=== PATIENT | female | born 1950 | race Caucasian/White ===

== ENCOUNTER 2020-07-31 15:39 | Inpatient (IN) | payer OTHER ==
[~2020-07-31] VITALS: Ht 172.7 cm; Wt 86.1 kg
[~2020-07-31 15:39] MED LIST: HYDACE5 PO; NAPR500 PO; VENL75
[2020-07-31 16:58] LABS: BASOPHILS ABSOLUTE AUTO 0.05 K/mm3 (0.00-0.23); BASOPHILS PERCENT AUTO 1 % (0-2); EOSINOPHILS ABSOLUTE AUTO 0.01 K/mm3 (0.00-0.68); EOSINOPHILS PERCENT AUTO 0 % (0-6); Hematocrit 29.4 % (33.0-51.0); Hemoglobin 8.7 g/dL (11.5-16.0); IMMATURE GRAN ABSOLUTE AUTO 0.03 K/mm3 (0.00-0.10); IMMATURE GRAN PERCENT AUTO 0 % (0-1); LYMPHOCYTES ABSOLUTE AUTO 0.96 K/mm3 (0.84-5.20); LYMPHOCYTES PERCENT AUTO 13 % (21-46); MONOCYTES ABSOLUTE AUTO 0.63 K/mm3 (0.16-1.47); MONOCYTES PERCENT AUTO 9 % (4-13); Mean Corpuscular HGB 24.6 pg (26.0-34.0); Mean Corpuscular HGB Conc 29.6 g/dL (31.5-36.5); Mean Corpuscular Volume 83 fL (80-100); Mean Platelet Volume 10.1 fL (9.1-12.4); NEUTROPHILS ABSOLUTE AUTO 5.74 K/mm3 (1.96-9.15); NEUTROPHILS PERCENT AUTO 77 % (41-73); Platelet Count 142 K/mm3 (150-400); RDW Coefficient Variation 16.5 % (11.7-14.2); RDW Standard Deviation 50.4 fL (35.1-46.3); Red Blood Cell Count 3.53 M/mm3 (3.80-5.20); White Blood Cell Count 7.42 K/mm3 (4.00-11.30)
[2020-07-31 17:17] LABS: Alanine Aminotransfer (ALT/SGP 42 U/L (12-78); Albumin, Blood 1.9 g/dL (3.4-5.0); Albumin/Globulin Ratio 0.4 (0.8-1.8); Alk Phos 139 U/L (50-136); Anion Gap 6 mmol/L (6-16); Aspartate Aminotrans (AST/SGOT 69 U/L (12-37); Bilirubin, Total 2.4 mg/dL (0.1-1.0); Blood Urea Nitrogen 16 mg/dL (8-24); Bun/Creatinine Ratio 24.3 (12.0-20.0); CO2, Blood 23 mmol/L (21-32); Calcium, Blood 7.8 mg/dL (8.5-10.1); Chloride, Blood 111 mmol/L (98-108); Creatinine, Blood 0.66 mg/dL (0.40-1.00); Globulin, Blood 5.4 g/dL (2.2-4.0); Glomerular Filtration Rate >60 (60-); Glucose, Blood 111 mg/dL (70-99); Potassium, Blood 4.4 mmol/L (3.5-5.5); Sodium, Blood 140 mmol/L (136-145); Total Protein, Blood 7.3 g/dL (6.4-8.2)
[2020-07-31] MEDS ORDERED: SYNTHROID75 MCG PO (18:16)
[2020-07-31 18:46] LABS: Hematocrit 27.4 % (33.0-51.0)
[2020-07-31 20:08] LABS: Influenza A, PCR Negative (NEGATIVE); Influenza B, PCR Negative (NEGATIVE); Resp Syncytial Virus, PCR Negative (NEGATIVE); SARS-Cov-2 (COVID-19) PCR, MMC Negative (NEGATIVE)
--- NOTE | 2020-07-31 21:16 | NUR ---
07/31/202115 Elizabeth Sanon History, Chart, Medications and Allergies reviewed before start of procedure. PATIENT INTIBATED, SEDATED ON VENT. GAVE SMALL AMOUNT OF VERSED AND ADDITION PROPOFOL IN ORDER TO START CASE DUE TO PATEINT BUCKING THE VENT. LEVOPHED GTT INFUSING, MANAGED BY SUPERVISOR ENDLESS TRACK VEHICLE.
[2020-07-31 22:24] LABS: Hematocrit 31.1 % (33.0-51.0); Hemoglobin 9.6 g/dL (11.5-16.0)
[2020-07-31 23:02] LABS: Base Excess Venous -11.5 mmol/L; Bicarbonate Venous 15.6 mmol/L (24.0-30.0); PCO2 Venous 27.5 mmHg (38-42); PO2 Venous 36.9 mmHg (38-42); pH Blood Venous 7.33 (7.34-7.37)
--- NOTE | 2020-08-01 00:45 | NUR ---
ADMIT ASSESSMENT PT BROUGHT TO ICU VIA STRETCHER, TRANSFERRED TO BED VIA TOTAL LIFT/ SLIDER SHEET. PT INTUBATED AND SEDATED. FIRST UNIT OF BLOOD INFUSING. VENT SETTINGS AC: 16, 400, FIO2 25%, PEEP 5 c O2 SATS > 95%. LS CLEAR. ABD DISTENDED AND FIRM. TEMP RENTERIA CATH PATENT, DRAINING YELLOW URINE. BP SOFT, LEVOPHED TO BE ADMINISTERED ONCE IT ARRIVES ON THE UNIT. PREPARING PT FOR UPPER ENDOSCOPY. WILL CONTINUE TO MONITOR CLOSELY.
[2020-08-01 03:58] LABS: Hematocrit 30.1 % (33.0-51.0); Hemoglobin 9.2 g/dL (11.5-16.0)
[2020-08-01 04:20] LABS: Anion Gap 7 mmol/L (6-16); Blood Urea Nitrogen 16 mg/dL (8-24); Bun/Creatinine Ratio 24.3 (12.0-20.0); CO2, Blood 22 mmol/L (21-32); Chloride, Blood 115 mmol/L (98-108); Creatinine, Blood 0.66 mg/dL (0.40-1.00); Glomerular Filtration Rate >60 (60-); Glucose, Blood 105 mg/dL (70-99); Potassium, Blood 4.3 mmol/L (3.5-5.5); Sodium, Blood 144 mmol/L (136-145)
[2020-08-01 04:40] LABS: International Normalized Ratio 1.91; Prothrombin Time Results 19.7 Sec (9.7-11.5)
[2020-08-01 06:37] LABS: Hematocrit 26.5 % (33.0-51.0); Hemoglobin 8.4 g/dL (11.5-16.0)
--- NOTE | 2020-08-01 06:45 | NUR ---
SHIFT SUMMARY PT REMAINS INTUBATED AND SEDATED. VENT SETTINGS UNCHANGED. NSR ON THE MEDICAL RECORDS MANAGER. PROPOFOL TITRATED, SEE FLOWSHEET. DR NEGRETE PERFORMED UPPER ENDOSCOPY AND PLACED 7 BANDS, SEE SURG NOTE. PT RECEIVED A TOTAL OF 2 UNITS OF BLOOD SINCE ADMIT TO THE HOSPITAL. CONTINUED PROTONIX AND SANDOSTATIN, NS @ 75ML/HR. NOREPINEPHRINE TITRATED T/O THE SHIFT, ON SB SINCE 3 c A MAP >65. RENTERIA CATH PATENT, DRAINING RONNI URINE. ONE SMALL, LOOSE, DARK BM THIS AM. WILL CONTINUE TO MONITOR.
--- NOTE | 2020-08-01 07:42 | NUR ---
Received report from Yefri STEELE. Patient is intubated and sedated with 7.5 ET and 22 cm at lips with vent settings AC 16, TV 400, FiO2 25% and PEEP 5.0 and sats 99%. She has 4 IV's all dressings intact and site WNL'sand infusinga LAC propofol 40 mcg/kg/min, 18ga LW protonix at 10 ml/hr, 18ga RH Octrotide 25 ml/hr, 18ga RAC flushed and SL. She has 16 Fr. temp Poole draining sharri colored urine to gravity. She has SCD's bilaterally to LE's. She is in bilateral soft wrist restraints for patient and line safety.
--- NOTE | 2020-08-01 09:30 | NUR ---
No changes in Gtt's or vent setting. She resting quietly on current sedation. VSS. Paracentesis at 1000. Thick serous oral secretion moderate amount. Dr Stockton will adress weaning after para.
[2020-08-01 10:24] LABS: Hematocrit 27.6 % (33.0-51.0); Hemoglobin 8.5 g/dL (11.5-16.0)
[2020-08-01 10:44] LABS: Automated BF WBC Count 0.047 K/mm3 (0-999); Body Fluid WBC Count 47 /mm3 (0-999)
[2020-08-01 11:01] LABS: pH, Body Fluid 7.7
[2020-08-01 11:03] LABS: Glucose, Body Fluid 121 mg/dL
[2020-08-01 11:05] LABS: Albumin, Body Fluid 0.3 g/dL
[2020-08-01 11:09] LABS: Protein, Body Fluid 0.9 g/dL
[2020-08-01 11:12] LABS: Lactate Dehydrogenase, Body Fl 40 U/L
--- NOTE | 2020-08-01 11:30 | NUR ---
Patient has 7 liters remove and sample sent to lab. Propofol has been placed on standby at 1115 for weaning. 2 Bottles of Albumin ordered and 1 administered. She remains in restraints while intubated. Will place on Spon. mode when awakened more. started Levophed back up at 1100 for soft BP at 1mcg/min and is currently at that rate.
[2020-08-01 11:31] LABS: RBC Count, Body Fluid 60 /mm3 (0-0)
[2020-08-01 11:35] LABS: Albumin, Blood 1.6 g/dL (3.4-5.0)
[2020-08-01 11:40] LABS: Total Cell Count, Body Fluid 100
[2020-08-01 11:41] LABS: Appearance, Body Fluid Clear (Clear); Color, Body Fluid Yellow (None-Yellow)
--- NOTE | 2020-08-01 13:30 | NUR ---
Patient sedation off at 1115, placed on Spon. mode at 1209 and extubated on RA at 1305. She has been resting post extubation. Levophed off after 30 minutes of being on. VSS, See EMR. Octreotide and Protonix continues to infuse
--- NOTE | 2020-08-01 16:16 | NUR ---
Levophed just restarted again for soft BP 85 systolic. She tolerated sips of water. She has been resting well . She awakens eaily and is able to communicate her needs in slow soft voice. She remains on RA and sats upper 90%'s. Poole remains intact and draining to gravity. Protonix and Octreotide and NS.
--- NOTE | 2020-08-01 17:34 | NUR ---
She remains on RA and sats high 90's. She alert and oriented and awakens to verbal stimuli, She is able to communicate her needs still in soft slow speech. She remains on 1 mcg/min of levophed and has systolics 90's and MAPs >65. She has infusing NS at 75 ml/hr, Protonix 10ml/hr, Octreotide 25ml/hr. She had 700 ml of light sharri colored urine from marshall. She will assist with positioning. Dr Dover by and changed to Cl Liq Diet.
[2020-08-01 18:13] LABS: Hemoglobin 7.5 g/dL (11.5-16.0)
--- NOTE | 2020-08-01 19:30 | NUR ---
ASSUMED CARE OF PT AT 1915. REPORT RECEIVED AT BEDSIDE. PT PRESENTS IN BED. ALERT AND ORIENTED. PLEASANT AND COOPERATIVE WITH CARE AND ASSESSMENT. DENIES PAIN AT THIS TIME. NO ACTIVE BLEEDING TO NOTE. CONTINUES ON PROTONIX AND OCTREOTIDE. LEVOPHED AT 1 MCG. WILL REVIEW CHART AND PLAN OF CARE FOR THIS PT.
--- NOTE | 2020-08-01 22:38 | NUR ---
PT'S DAUGHTER, TANA, PHONES REQUESTING UPDATE. SPOKE WITH PT WHEREAS VERBAL CONSENT RECEIVED. UPDATE GIVEN. PT CONTINUES ON PROTONIX, AND OCTREOTIDE. NO S/S BLEEDING TO NOTE. LEVOPHED REMAINS AT 1 MCG. WILL ATTEMPT TO WEAN THIS TO OFF BY AM. DISCUSSED PLAN OF CARE FOR THIS SHIFT WITH PT. SHE IS IN AGREEMENT.
[2020-08-02 02:05] LABS: BASOPHILS ABSOLUTE AUTO 0.04 K/mm3 (0.00-0.23); BASOPHILS PERCENT AUTO 1 % (0-2); EOSINOPHILS ABSOLUTE AUTO 0.11 K/mm3 (0.00-0.68); EOSINOPHILS PERCENT AUTO 2 % (0-6); Hematocrit 24.9 % (33.0-51.0); Hemoglobin 7.7 g/dL (11.5-16.0); IMMATURE GRAN ABSOLUTE AUTO 0.01 K/mm3 (0.00-0.10); IMMATURE GRAN PERCENT AUTO 0 % (0-1); LYMPHOCYTES ABSOLUTE AUTO 1.24 K/mm3 (0.84-5.20); LYMPHOCYTES PERCENT AUTO 24 % (21-46); MONOCYTES PERCENT AUTO 8 % (4-13); Mean Corpuscular HGB 25.9 pg (26.0-34.0); Mean Corpuscular HGB Conc 30.9 g/dL (31.5-36.5); Mean Corpuscular Volume 84 fL (80-100); Mean Platelet Volume 10.7 fL (9.1-12.4); NEUTROPHILS ABSOLUTE AUTO 3.47 K/mm3 (1.96-9.15); NEUTROPHILS PERCENT AUTO 66 % (41-73); Platelet Count 58 K/mm3 (150-400); RDW Coefficient Variation 16.9 % (11.7-14.2); RDW Standard Deviation 51.4 fL (35.1-46.3); Red Blood Cell Count 2.97 M/mm3 (3.80-5.20); White Blood Cell Count 5.27 K/mm3 (4.00-11.30)
[2020-08-02 02:17] LABS: Anion Gap 5 mmol/L (6-16); Blood Urea Nitrogen 14 mg/dL (8-24); CO2, Blood 24 mmol/L (21-32); Calcium, Blood 6.9 mg/dL (8.5-10.1); Chloride, Blood 116 mmol/L (98-108); Creatinine, Blood 0.78 mg/dL (0.40-1.00); Glomerular Filtration Rate >60 (60-); Glucose, Blood 110 mg/dL (70-99); Potassium, Blood 3.8 mmol/L (3.5-5.5); Sodium, Blood 145 mmol/L (136-145)
--- NOTE | 2020-08-02 06:50 | NUR ---
PT HAS HAD RESTFUL NIGHT. CONTINUES ON OCTREOTIDE AND PROTONIX DRIP. NO S/S BLEEDING. PT DENIES PAIN. IS ABLE TO TAKE WATER AND JELLO WITHOUT NAUSEA. HAVE BEEN ABLE TO HAVE LEVOPHED DRIP OFF FOR MOST OF THE NIGHT. BLOOD PRESSURES REMAINS WITH MAP > 60. WILL CONTINUE TO MONITOR PT, AND WILL REPORT OFF TO ONCOMING RN.
[2020-08-02 07:10] LABS: HBSAG SCREEN Negative (Negative); HEP B CORE AB, TOT Negative (Negative); HEP C VIRUS AB 0.2 (0.0-0.9)
--- NOTE | 2020-08-02 08:00 | NUR ---
Receieved report from Sridhar STEELE. Patient awaken when entering room and speaks in low soft voice and is able to communicate her needs. She remains on RA and sats >90%. No signs of any current bleeding. She has Protonix at 10ml/hr and Octreotide at 25ml/hr. She continues to drink and is increaseing her volume Cl Liq Diet. Levophed is off and BP systolic 90's. Will get patient up today. VSS, See EMR. She has 16Fr temp marshall draining to gravity light sharri colored urine and temp of 98.4.
--- NOTE | 2020-08-02 09:25 | NUR ---
Dr contreras was by and changed status to PCU because still have systolics in the 90's. she awakens to verbal stimuli and then goes back to sleep. [facility] called and patient wanted them to call back later. Remains on RA and sats >90%. Positions self in bed for comfort.
--- NOTE | 2020-08-02 11:30 | NUR ---
Patient resting and fluids encouraged. No significant changes with patient. Remains on RA and sats >90%. Protonix, Octreotide and NS continue at same rates. OLIVO but weak.
--- NOTE | 2020-08-02 12:50 | NUR ---
Transferred patient to [facility] via icu bed. He transferred with one assist to bathroom and 1 to [facility] and PT/OT orders as well as tele and transfer. Spoke with Victoria STEELE and she helped with patient and got settled. She placed bed alarm on prior to me leaving.
--- NOTE | 2020-08-02 14:30 | NUR ---
Gave report to PCU for patient moving to PCU 11. Got patient up in chair and she transferred well with two SBA. VSS, See EMR. Patient has Protonix at 10ml/hr, Octreotide 25ml/hr, and NS at 75ml/hr. Family at bedside during transfer. All her personal belongings were taken over with patient. Patient continues with 16 Fr marshall vi being incontinent. Fluids transferred to PCU pumps. patient remains in chair at PCU. PCU had no further questions.
--- NOTE | 2020-08-02 16:12 | NUR ---
PT ARRIVED IN THE UNIT TRANSFERRED FROM ICU VIA RECLINER. PT IS HERE FOR ESOPHAGEAL VARICES/BLEEDING. PT IS ALERT AND ORIENTED AT BASELINE STATED STILL FEELING WEAK. VITALS HRR SINUS 80'S, BP SYSTOLIC 112, SATS ABOVE 95% ON RA, AFEBRILE. PT HAS OCREOTIDE GTT RUNNING AT 25MLS/HR, PROTONIX GTT AT 10MLS/HR AND NS AT 75MLS/HR. PT HAS 3+ PITTING EDEMA ON BLE, DEPENDENT EDEMA ON BOTH HANDS. TEMP RENTERIA DRAINING VIA GRAVITY, DARK YELLOW URINE. PT STILL UP IN THE RECLINER SISTER AT BEDSIDE, REPORT RECEIVED FROM YANELIS STEELE,. WILL MONITOR PT.
[2020-08-03 05:05] LABS: Hematocrit 26.7 % (33.0-51.0); Mean Corpuscular HGB 25.6 pg (26.0-34.0); Mean Corpuscular Volume 85 fL (80-100); Mean Platelet Volume 10.5 fL (9.1-12.4); Platelet Count 56 K/mm3 (150-400); RDW Coefficient Variation 17.3 % (11.7-14.2); RDW Standard Deviation 53.2 fL (35.1-46.3); Red Blood Cell Count 3.13 M/mm3 (3.80-5.20); White Blood Cell Count 3.54 K/mm3 (4.00-11.30)
[2020-08-03 05:36] LABS: Anion Gap 5 mmol/L (6-16); Blood Urea Nitrogen 13 mg/dL (8-24); Bun/Creatinine Ratio 18.2 (12.0-20.0); CO2, Blood 23 mmol/L (21-32); Calcium, Blood 7.3 mg/dL (8.5-10.1); Chloride, Blood 116 mmol/L (98-108); Creatinine, Blood 0.72 mg/dL (0.40-1.00); Glomerular Filtration Rate >60 (60-); Glucose, Blood 99 mg/dL (70-99); Potassium, Blood 3.6 mmol/L (3.5-5.5); Sodium, Blood 144 mmol/L (136-145)
--- NOTE | 2020-08-03 07:25 | NUR ---
SHIFT SUMMARY PATIENT PLEASENT AND COOPERATIVE THROUGHOUT THE NIGHT. PATIENT APPEARED TO NAP ON AND OFF THROUGHOUT THE NIGHT. PATIENT'S IV FLUIDS AND DRIPS RUNNING PER ORDERS. PATIENT EXPRESSED WORRY ABOUT HER "BLUE PURSE WITH LOTS OF ZIPPERS." SEVERAL DIFFERENT STAFF MEMBERS UNABLE TO LOCATE PURSE IN ROOM. ICU UNABLE TO LOCATE PURSE IN PATIENTS PREVIOUS ROOM. PCU AND ICU CHARGE NURSES AWARE AND ATTEMPTING TO LOCATE PURSE. THIS MORNING PATIENT REPORTS SHE THINKS THERE IS A GOOD POSSIBLITY THAT HER [id number] MAY HAVE TAKEN IT HOME WITH HER WHEN SHE CAME TO VISIT. PATIENT STATES SHE WILL CALL HER [id number] TODAY TO ASK. REPORT GIVEN TO ONCOMING RN.
--- NOTE | 2020-08-03 17:50 | NUR ---
NO ACUTE EVENTS THIS SHIFT. VSS, BUT BP RUNNING BORDERLINE HYPOTENSIVE. PATIENT DECLINED GETTING UP OUT OF BED THIS SHIFT. PATIENT DENIED PAIN/NAUSEA, ON ROOM AIR. PATIENT ASSISTED IN REPOSITIONING IN BED, OTHERWISE COOPERATIVE WITH CARE.
[2020-08-04 03:58] LABS: Hematocrit 28.9 % (33.0-51.0); Hemoglobin 8.6 g/dL (11.5-16.0); Mean Corpuscular HGB 25.7 pg (26.0-34.0); Mean Corpuscular HGB Conc 29.8 g/dL (31.5-36.5); Mean Corpuscular Volume 87 fL (80-100); Mean Platelet Volume 10.9 fL (9.1-12.4); Platelet Count 66 K/mm3 (150-400); RDW Coefficient Variation 17.7 % (11.7-14.2); RDW Standard Deviation 54.9 fL (35.1-46.3); Red Blood Cell Count 3.34 M/mm3 (3.80-5.20); White Blood Cell Count 4.52 K/mm3 (4.00-11.30)
--- NOTE | 2020-08-04 07:34 | NUR ---
SHIFT SUMMARY PATIENT PLEASENT AND COOPERATIVE THROUGHOUT THE NIGHT. PATIENT APPEARD TO NAP ON AND OFF LAST NIGHT. THIS MORNING PATIENT REPORTED SHE DID NOT SLEEP WELL, PATIENT REPORTS SHE IS VERY WORRIED ABOUT GOING HOME AND THE FAMILY DYNAMICS AT HOME. IV GTTS RUNNING PER ORDERS. VITAL SIGNS CHARTED. STAFF ATTEMPTED TO TURN PATIENT FREQUENTLY LAST NIGHT BUT PATIENT WOULD OFTEN REFUSE TURNS STATING, "I'M COMFORTABLE RIGHT NOW." REPORT GIVEN TO ONCOMING RN.
--- NOTE | 2020-08-04 17:25 | NUR ---
NO ACUTE EVENTS THIS SHIFT. PATIENT WORKED WITH PT TODAY. PATIENT UP IN ROOM WITH X2 STANDBY ASSIST TO RECLINER. TOLERATION WAS FAIR, PATIENT REQUIRED SOME CUES FOR SAFE TRANSFER FROM RECLINER TO BED. PATIENT ENCOURAGED BY THIS RN TO BE UP IN CHAIR, PATIENT DECLINED MOST OF SHIFT AND WANTED TO STAY IN BED. PATIENT ABLE TO REPOSITION IN BED, REPOSITIONING ASSISTANCE PROVIDED NEEDED BY THIS RN AND CASE MAKING MACHINE OPERATOR. BLADDER TRAINING STARTED SECOND HALF OF SHIFT. PATIENT HYPOTENSIVE TOWARD END OF SHIFT, WCTM.
[2020-08-05 03:45] LABS: Hematocrit 29.1 % (33.0-51.0); Hemoglobin 8.8 g/dL (11.5-16.0)
[2020-08-05 04:01] LABS: Anion Gap 4 mmol/L (6-16); Blood Urea Nitrogen 9 mg/dL (8-24); Bun/Creatinine Ratio 12.9 (12.0-20.0); CO2, Blood 26 mmol/L (21-32); Chloride, Blood 111 mmol/L (98-108); Glomerular Filtration Rate >60 (60-); Glucose, Blood 129 mg/dL (70-99); Sodium, Blood 141 mmol/L (136-145)
--- NOTE | 2020-08-05 05:22 | NUR ---
SHIFT SUMMARY NO ACUTE CHANGES THIS SHIFT. VSS. PT [id number]. SP02>92% ON RA. PT MEDICAL STATUS, NO TELMETRY. PT ABLE TO MOVE SELF IN BED. RENTERIA CATHETER DRAINING TO GRAVITY. PT DENIES PAIN AND STATES SHE IS FEELING "GOOD" AND HAS BEEN "TREATED LIKE A FRANCA DURING HER HOSPITAL STAY". PT'S K+ LAB THIS MORNING WAS 3.0. CALL PLACED TO MD MURPHY TO NOTIFY. MD MURPHY W/ ORDERS FOR 40 MEQ OF POTASSIUM IV X1. PT SLEPT T/O THE NIGHT. CALL LIGHT IN REACH. WILL CONTINUE TO MONITOR.
--- NOTE | 2020-08-05 12:20 | NUR ---
PATIENT IN STABLE CONDITION, VSS AND PATIENT ALERT AND ORIENTED. PATIENT IS AGREEABLE TO DISCHARGE AT THIS TIME. THIS MORNING THE PATIENT'S DAUGHTER EAN CALLED AND SPOKE WITH THIS RN AND COMMUNICATED THAT SHE WAS CONCERNED THAT THE PATIENT'S BROTHER WOULD NOT LET THE PATIENT BACK INTO THE RESIDENCE WHERE THE PATIENT HAS STATED SHE HAS LIVED FOR 20+ YEARS. EAN STATED THAT THE PATIENT'S BROTHER AND [id number] WANT TO EVICT THE PATIENT BECAUSE THEY DO NOT WANT THE PATIENT COMING HOME AND CONTINUEING TO LIVE WITH THE PATIENT'S MOTHER BROOK. THIS RN COMMUNICATED TO EAN THAT IT IS THE PATIENT'S RIGHT TO RETURN TO HER PERMANENT RESIDENCE AFTER HOSPITAL DISCHARGE, AND IF THE PATIENT IS NOT LET INTO HER RESIDENCE THEN THE POLICE CAN BE CALLED BY THE PATIENT TO LET HER INTO HER ABODE. THE DAUGHTER EAN STATED THAT SHE WOULD SPEAK WITH THE BROTHER AND THE [id number] AND LEANNE IF THEY ARE GOING TO LET THE PATIENT INTO THE HOUSE.
--- NOTE | 2020-08-05 12:27 | NUR ---
LORAINE RN TOOK CALL FROM PATIENT'S [id number] REBEKAH, LORAINE COMMUNICATED TO THIS RN THAT REBEKAH STATED SHE WOULD BE WILLING TO GIVE THE PATIENT A RIDE HOME. THIS RN SPOKE AGAIN WITH THE DAUGHTER EAN, WHO STATED THAT SHE UNDERSTOOD AND AGREED THAT HER MOTHER NEEDED TO GO HOME TO HER PERMANENT RESIDENCE, BUT EAN THEN STATED THAT SHE BELIEVED REBEKAH WOULD WORKERS' COMPENSATION MEDIATOR THE PATIENT AND LEAVE HER AT THE HOMELESS JAIL. THIS RN HAD A CONVERSATION ON 08/04 WITH REBEKAH DURING VISITOR HOURS WHERE REBEKAH REQUESTED TO SPEAK WITH THIS RN OUTSIDE THE ROOM. REBEKAH STATED THAT SHE BELIEVED THAT THE PATIENT SHOULD NOT BE DISCHARGED BACK TO HER RESIDENCE, SHE STATED THAT THE PATIENT WAS VERBALLY ABUSIVE TO THE MOTHER WHO ALSO LIVES THERE. REBEKAH ASKED IF THE DOCTOR COULD SAY SOMETHING TO KEEP THE PATIENT IN THE HOSPITAL LONGER, REBEKAH ASKED IF THE DOCTOR COULD SAY "THE PATIENT WAS EXPOSED TO COVID IN THE HOSPITAL AND NEEDS TO STAY LONGER." THIS RN COMMUNICATED THE STATEMENT MADE BY THE [id number] REGARDING THE VERBAL ABUSE CLAIM THAT WAS MADE TO SCARLET STEELE IN CARE MANAGEMENT. NO INTERACTIONS BETWEEN THE PATIENT AND THE MOTHER HAVE BEEN WITNESSED IN THE HOSPITAL, THE MOTHER HAS NOT VISITED THE PATIENT IN THE HOSPITAL DURING THE TIME THIS RN HAS CARED FOR THE PATIENT. THIS INTERACTION BETWEEN THIS RN AND REBEKAH WAS COMMUNICATED TO SCARLET STEELE IN CARE MANAGEMENT. THIS RN SPOKE WITH SCARLET COLES RN IN CASE MANAGEMENT TODAY REGARDING GETTING PATIENT A SAFE RIDE HOME, SCARLET REFERRED THIS RN TO NURSING TEMPLATE CHECKER. THIS RN SPOKE WITH NURSING TEMPLATE CHECKER CAPRICE NICHOLS REGARDING THE SITUATION, THE NURSING TEMPLATE CHECKER AGREED IT WOULD BE APPROPRIATE TO ARRANGE A RIDE HOME FOR THE PATIENT.
[2020-08-05] MEDS ORDERED: FURO20 PO (12:35)
[2020-08-05] MEDS ORDERED: PANT40 PO (12:35)
[2020-08-05] MEDS ORDERED: ALDACTONE25 MG PO (12:36)
[2020-08-05] MEDS ORDERED: CIPR500 PO (12:37)
[2020-08-05] MEDS ORDERED: KLOR-CON 1010 MEQ PO (12:38)
--- NOTE | 2020-08-05 13:50 | NUR ---
PATIENT PROVIDED DISCHARGE INFO REGARDING FOLLOW UP PLANS, REASONS TO RETURN TO THE HOSPITAL, AND MEDICATION INFORMATION. PATIENT VERBALIZED UNDERSTANDING, NO SIGNS OF ACUTE DISTRESS AT THIS TIME.
--- NOTE | 2020-08-05 14:19 | NUR ---
Update on discharge: Spoke with PRABHA Farias on the phone when she called asking about Pt and plan of discharge. Informed her that she would be discharged today. Dinora asked if she would be going to her previous home or somewhere else. Informed her she would be returning to her previous redidence. Dinora stated she would be coming in to bring her a shirt and give her a ride home. Infromed Dinora at that time that we would be arranging a ride for Pt, and that she does not need to come in. Dinora stated that she would be coming and that she had planned on giving a ride to the Pt. Informed Dinora that we had planned on arrainging a ride, and were still planning on doing this. Gave this information to Paris, Pt primary RN, who spoke with Pt's daughter. Daughter voiced concern that Dinora would not take her home, but would drop her off at a homeless alf. Plan went forward to arrange a ride for Pt. PRABHA Farias called back and asked what medications Pt would be discharged on, specifically psych meds. Informed Dinora that medication list would be gone over with Pt since she is A/O x4 and provides her own care. Again told Dinora that we are arranging a ride for her, but Dinora stated she still plans on coming in to provide a ride. Isabell arrived to give ride to Pt. Pt stated that her PRABHA was on her way in and that she could give her a ride. Informed Pt we had arranged a ride, it was here, and that perhaps Dinora could pickle processor her RX for her. Pt stated that would be fine but still wanted to wait for Dinora, stated that she spoke with her mother and that her mother wants her home so Dinora and her brother would allow that. Informed her that we had already arrainged a ride, it was here, and that I would call Dinora to pickle processor her RX. Pt was agreeable and left via w/c [facility]. Attempted to call Dinora but she did not pickle processor cell phone and no voicemail was set up. Just after this Dinora arrived. Informed her Pt had just left via the ride we had arranged but that it would be helpful if she picked up RX for the Pt. Dinora was very agreeable and stated that she would do this.
== END 2020-08-05 14:08 | disposition home health service (06) | DRG 432 ==
LOC: ER 15:39 → PCU 19:02 → ICUW 19:02 → ICUE 19:02 → PCU 08-02 14:46
PROVIDERS: Emergency Medicine; Internal Medicine; Internal Medicine Gastroenterology; Internal Medicine Pulmonary Disease; Physician Assistant; ADMIT Internal Medicine
PROC: 3E033XZ Introduction of Vasopressor into Peripheral Vein, Percutaneous Approach (ICD-10-PCS; 2020-07-31)
PROC: 0BH18EZ Insertion of Endotracheal Airway into Trachea, Via Natural or Artificial Opening Endoscopic (ICD-10-PCS; 2020-07-31)
PROC: 5A1935Z Respiratory Ventilation, Less than 24 Consecutive Hours (ICD-10-PCS; 2020-07-31)
PROC: 06L38CZ Occlusion of Esophageal Vein with Extraluminal Device, Via Natural or Artificial Opening Endoscopic (ICD-10-PCS; principal; 2020-07-31 20:00)
PROC: 0W9G3ZZ Drainage of Peritoneal Cavity, Percutaneous Approach (ICD-10-PCS; 2020-08-01)
DX: K74.60 Unspecified cirrhosis of liver (principal); G92 Toxic encephalopathy; R57.8 Other shock; I85.11 Secondary esophageal varices with bleeding; D62 Acute posthemorrhagic anemia; K76.6 Portal hypertension; R18.8 Other ascites; E03.9 Hypothyroidism, unspecified; Z20.828 Contact with and (suspected) exposure to other viral communicable diseases; K44.9 Diaphragmatic hernia without obstruction or gangrene; F32.9 Major depressive disorder, single episode, unspecified; E87.6 Hypokalemia; Z78.1 Physical restraint status
CPT/HCPCS: 0241U; 31500; 31720; 36415; 36430; 49083; 51702; 71045; 74177; 80048; 80053; 82040; 82042; 82105; 82803; 82945; 83605; 83615; 83690; 83735; 83880; 83986; 84157; 84484; 85014; 85018; 85025; 85027; 85610; 85730; 86317; 86704; 86708; 86803; 86850; 86900; 86901; 86923; 87070; 87205; 87340; 88108; 89051; 93005; 93010; 94002; 94003; 94770; 96361-59; 96365-59; 96375-59; 97110; 97116; 97162; 99285-25; A9270; A9270-GY; C9113; J0171; J0330; J0696; J1430; J2250; J2354; J2704; J3480; J7030; J7050; J7060; P9016; P9046; Q9967

== ENCOUNTER 2020-09-01 18:57 | Emergency (ER) | payer OTHER ==
[~2020-09-01] VITALS: Ht 172.7 cm; Wt 79.4 kg
[~2020-09-01 18:57] MED LIST changes: +ALDACTONE25 MG PO; +CIPR500 PO; +FURO20 PO; +KLOR-CON 1010 MEQ PO; +PANT40 PO; +SYNTHROID75 MCG PO
[2020-09-01 20:24] LABS: Alanine Aminotransfer (ALT/SGP 41 U/L (12-78); Albumin/Globulin Ratio 0.4 (0.8-1.8); Alk Phos 133 U/L (50-136); Anion Gap 7 mmol/L (6-16); Aspartate Aminotrans (AST/SGOT 85 U/L (12-37); Bilirubin, Total 2.4 mg/dL (0.1-1.0); Blood Urea Nitrogen 17 mg/dL (8-24); Bun/Creatinine Ratio 24.5 (12.0-20.0); CO2, Blood 21 mmol/L (21-32); Calcium, Blood 7.4 mg/dL (8.5-10.1); Chloride, Blood 108 mmol/L (98-108); Globulin, Blood 5.7 g/dL (2.2-4.0); Glomerular Filtration Rate >60 (60-); Glucose, Blood 114 mg/dL (70-99); Potassium, Blood 3.9 mmol/L (3.5-5.5); Sodium, Blood 136 mmol/L (136-145); Total Protein, Blood 7.7 g/dL (6.4-8.2)
[2020-09-01 20:54] LABS: BASOPHILS ABSOLUTE AUTO 0.05 K/mm3 (0.00-0.23); BASOPHILS PERCENT AUTO 1 % (0-2); EOSINOPHILS ABSOLUTE AUTO 0.03 K/mm3 (0.00-0.68); EOSINOPHILS PERCENT AUTO 1 % (0-6); Hematocrit 31.1 % (33.0-51.0); Hemoglobin 9.2 g/dL (11.5-16.0); IMMATURE GRAN ABSOLUTE AUTO 0.01 K/mm3 (0.00-0.10); IMMATURE GRAN PERCENT AUTO 0 % (0-1); LYMPHOCYTES ABSOLUTE AUTO 0.72 K/mm3 (0.84-5.20); LYMPHOCYTES PERCENT AUTO 14 % (21-46); MONOCYTES ABSOLUTE AUTO 0.46 K/mm3 (0.16-1.47); MONOCYTES PERCENT AUTO 9 % (4-13); Mean Corpuscular HGB 23.4 pg (26.0-34.0); Mean Corpuscular HGB Conc 29.6 g/dL (31.5-36.5); Mean Corpuscular Volume 79 fL (80-100); Mean Platelet Volume 10.5 fL (9.1-12.4); NEUTROPHILS ABSOLUTE AUTO 3.98 K/mm3 (1.96-9.15); NEUTROPHILS PERCENT AUTO 76 % (41-73); Platelet Count 103 K/mm3 (150-400); RDW Coefficient Variation 20.4 % (11.7-14.2); RDW Standard Deviation 58.6 fL (35.1-46.3); Red Blood Cell Count 3.94 M/mm3 (3.80-5.20); White Blood Cell Count 5.25 K/mm3 (4.00-11.30)
[2020-09-01 21:07] LABS: International Normalized Ratio 1.37; Prothrombin Time Results 14.4 Sec (9.7-11.5)
[2020-09-01] MEDS ORDERED: ONDA8 PO (23:36)
[2020-11-23] MEDS ORDERED: CALCITRIOL0.25 MC4 PO (11:41)
[2020-11-23] MEDS ORDERED: PANTOPRAZOLE SO40 M2 PO (11:41)
[2020-11-23] MEDS ORDERED: KLOR-CON 1010 ME1 PO (11:42)
== END 2020-09-02 00:49 | disposition home or self-care (01) ==
LOC: ER 18:57
PROVIDERS: Physician Assistant
DX: R18.8 Other ascites (principal); D64.9 Anemia, unspecified; E80.6 Other disorders of bilirubin metabolism; Z79.899 Other long term (current) drug therapy
CPT/HCPCS: 36415; 80053; 83690; 85025; 85610; 99284

== ENCOUNTER 2020-09-08 14:36 | Day surgery (SDC) | payer OTHER ==
[~2020-09-08 14:36] MED LIST changes: +ONDA8 PO
[2020-11-23] MEDS ORDERED: PANTOPRAZOLE SO40 M2 PO (11:41)
[2020-11-23] MEDS ORDERED: CALCITRIOL0.25 MC4 PO (11:41)
[2020-11-23] MEDS ORDERED: KLOR-CON 1010 ME1 PO (11:42)
== END 2020-09-08 22:47 | disposition home or self-care (01) ==
LOC: US 14:36
DX: R18.8 Other ascites (principal); K74.60 Unspecified cirrhosis of liver
CPT/HCPCS: 49083

== ENCOUNTER → 2020-10-11 | Outpatient (CLI) | payer OTHER ==
[~2020-10-11] MED LIST changes: +ALDACTONE100 MG PO; +CALC.25 PO; +CALCITRIOL0.25 MC4 PO; +FURO40 PO; +KLOR-CON 1010 ME1 PO; +PANTOPRAZOLE SO40 M2 PO
[2020-10-11 16:50] LABS: Alanine Aminotransfer (ALT/SGP 28 U/L (12-78); Albumin, Blood 1.8 g/dL (3.4-5.0); Albumin/Globulin Ratio 0.4 (0.8-1.8); Alk Phos 103 U/L (50-136); Anion Gap 4 mmol/L (6-16); Aspartate Aminotrans (AST/SGOT 46 U/L (12-37); Bilirubin, Total 2.3 mg/dL (0.1-1.0); Blood Urea Nitrogen 15 mg/dL (8-24); Bun/Creatinine Ratio 20.2 (12.0-20.0); CO2, Blood 26 mmol/L (21-32); Calcium, Blood 7.4 mg/dL (8.5-10.1); Chloride, Blood 107 mmol/L (98-108); Creatinine, Blood 0.74 mg/dL (0.40-1.00); Globulin, Blood 4.9 g/dL (2.2-4.0); Glomerular Filtration Rate >60 (60-); Glucose, Blood 87 mg/dL (70-99); Potassium, Blood 3.1 mmol/L (3.5-5.5); Sodium, Blood 137 mmol/L (136-145); Total Protein, Blood 6.7 g/dL (6.4-8.2)
== END | disposition home or self-care (01) ==
LOC: LAB SHORT 14:50 → PLD 14:50
PROVIDERS: Internal Medicine
DX: K75.81 Nonalcoholic steatohepatitis (NASH) (principal); K74.60 Unspecified cirrhosis of liver
CPT/HCPCS: 80053

== ENCOUNTER 2020-11-10 11:14 | Emergency (ER) | payer OTHER ==
[~2020-11-10] VITALS: Ht 175.3 cm; Wt 90.3 kg
[~2020-11-10 11:14] MED LIST changes: -ALDACTONE100 MG PO; -CALC.25 PO; -CALCITRIOL0.25 MC4 PO; -FURO40 PO; -KLOR-CON 1010 ME1 PO; -PANTOPRAZOLE SO40 M2 PO
[2020-11-10 12:53] LABS: BASOPHILS ABSOLUTE AUTO 0.04 K/mm3 (0.00-0.23); BASOPHILS PERCENT AUTO 1 % (0-2); EOSINOPHILS ABSOLUTE AUTO 0.02 K/mm3 (0.00-0.68); EOSINOPHILS PERCENT AUTO 1 % (0-6); Hematocrit 35.7 % (33.0-51.0); Hemoglobin 10.5 g/dL (11.5-16.0); IMMATURE GRAN ABSOLUTE AUTO 0.02 K/mm3 (0.00-0.10); IMMATURE GRAN PERCENT AUTO 1 % (0-1); LYMPHOCYTES ABSOLUTE AUTO 0.79 K/mm3 (0.84-5.20); LYMPHOCYTES PERCENT AUTO 19 % (21-46); MONOCYTES PERCENT AUTO 10 % (4-13); Mean Corpuscular HGB 21.1 pg (26.0-34.0); Mean Corpuscular HGB Conc 29.4 g/dL (31.5-36.5); Mean Corpuscular Volume 72 fL (80-100); Mean Platelet Volume 9.5 fL (9.1-12.4); NEUTROPHILS ABSOLUTE AUTO 2.87 K/mm3 (1.96-9.15); NEUTROPHILS PERCENT AUTO 69 % (41-73); Platelet Count 147 K/mm3 (150-400); RDW Coefficient Variation 22.4 % (11.7-14.2); Red Blood Cell Count 4.98 M/mm3 (3.80-5.20); White Blood Cell Count 4.14 K/mm3 (4.00-11.30)
[2020-11-10 13:08] LABS: Alanine Aminotransfer (ALT/SGP 41 U/L (12-78); Albumin, Blood 2.4 g/dL (3.4-5.0); Albumin/Globulin Ratio 0.4 (0.8-1.8); Alk Phos 137 U/L (50-136); Anion Gap 6 mmol/L (6-16); Aspartate Aminotrans (AST/SGOT 73 U/L (12-37); Bilirubin, Total 2.8 mg/dL (0.1-1.0); Blood Urea Nitrogen 14 mg/dL (8-24); Bun/Creatinine Ratio 16.2 (12.0-20.0); CO2, Blood 24 mmol/L (21-32); Calcium, Blood 8.2 mg/dL (8.5-10.1); Chloride, Blood 105 mmol/L (98-108); Creatinine, Blood 0.87 mg/dL (0.40-1.00); Globulin, Blood 6.8 g/dL (2.2-4.0); Glomerular Filtration Rate >60 (60-); Glucose, Blood 93 mg/dL (70-99); Potassium, Blood 3.9 mmol/L (3.5-5.5); Sodium, Blood 135 mmol/L (136-145); Total Protein, Blood 9.2 g/dL (6.4-8.2)
[2020-11-10 13:12] LABS: International Normalized Ratio 1.37; Prothrombin Time Results 14.4 Sec (9.7-11.5)
[2020-11-10] MEDS ORDERED: FURO40 PO (14:25)
[2020-11-23] MEDS ORDERED: PANTOPRAZOLE SO40 M2 PO (11:41)
[2020-11-23] MEDS ORDERED: CALCITRIOL0.25 MC4 PO (11:41)
[2020-11-23] MEDS ORDERED: KLOR-CON 1010 ME1 PO (11:42)
== END 2020-11-10 16:27 | disposition home or self-care (01) ==
LOC: ER 11:14
PROVIDERS: Physician Assistant
DX: R18.8 Other ascites (principal); R10.9 Unspecified abdominal pain; Z79.899 Other long term (current) drug therapy
CPT/HCPCS: 36415; 49083; 80053; 85025; 85610; 96365-59; 99284-25; P9046

== ENCOUNTER 2020-11-17 16:27 | Emergency (ER) | payer OTHER ==
[~2020-11-17] VITALS: Ht 175.3 cm; Wt 81.7 kg
[~2020-11-17 16:27] MED LIST changes: +FURO40 PO
[2020-11-17 17:09] LABS: BASOPHILS ABSOLUTE AUTO 0.03 K/mm3 (0.00-0.23); BASOPHILS PERCENT AUTO 1 % (0-2); EOSINOPHILS ABSOLUTE AUTO 0.01 K/mm3 (0.00-0.68); EOSINOPHILS PERCENT AUTO 0 % (0-6); Hematocrit 32.8 % (33.0-51.0); Hemoglobin 9.7 g/dL (11.5-16.0); IMMATURE GRAN ABSOLUTE AUTO 0.03 K/mm3 (0.00-0.10); IMMATURE GRAN PERCENT AUTO 1 % (0-1); LYMPHOCYTES ABSOLUTE AUTO 0.75 K/mm3 (0.84-5.20); LYMPHOCYTES PERCENT AUTO 12 % (21-46); MONOCYTES ABSOLUTE AUTO 0.82 K/mm3 (0.16-1.47); MONOCYTES PERCENT AUTO 13 % (4-13); Mean Corpuscular HGB Conc 29.6 g/dL (31.5-36.5); Mean Corpuscular Volume 71 fL (80-100); Mean Platelet Volume 8.9 fL (9.1-12.4); NEUTROPHILS ABSOLUTE AUTO 4.89 K/mm3 (1.96-9.15); NEUTROPHILS PERCENT AUTO 75 % (41-73); Platelet Count 123 K/mm3 (150-400); RDW Coefficient Variation 22.3 % (11.7-14.2); Red Blood Cell Count 4.61 M/mm3 (3.80-5.20); White Blood Cell Count 6.53 K/mm3 (4.00-11.30)
[2020-11-17 17:55] LABS: Alanine Aminotransfer (ALT/SGP 46 U/L (12-78); Albumin, Blood 2.3 g/dL (3.4-5.0); Albumin/Globulin Ratio 0.4 (0.8-1.8); Alk Phos 130 U/L (50-136); Anion Gap 6 mmol/L (6-16); Aspartate Aminotrans (AST/SGOT 80 U/L (12-37); Bilirubin, Total 2.3 mg/dL (0.1-1.0); Blood Urea Nitrogen 15 mg/dL (8-24); Bun/Creatinine Ratio 18.8 (12.0-20.0); CO2, Blood 23 mmol/L (21-32); Calcium, Blood 7.7 mg/dL (8.5-10.1); Chloride, Blood 104 mmol/L (98-108); Globulin, Blood 5.9 g/dL (2.2-4.0); Glomerular Filtration Rate >60 (60-); Glucose, Blood 132 mg/dL (70-99); Potassium, Blood 3.9 mmol/L (3.5-5.5); Sodium, Blood 133 mmol/L (136-145); Total Protein, Blood 8.2 g/dL (6.4-8.2)
[2020-11-17] MEDS ORDERED: CALC.25 PO (20:10)
[2020-11-17] MEDS ORDERED: ALDACTONE100 MG PO (20:13)
[2020-11-23] MEDS ORDERED: PANTOPRAZOLE SO40 M2 PO (11:41)
[2020-11-23] MEDS ORDERED: CALCITRIOL0.25 MC4 PO (11:41)
[2020-11-23] MEDS ORDERED: KLOR-CON 1010 ME1 PO (11:42)
== END 2020-11-17 21:16 | disposition home or self-care (01) ==
LOC: ER 16:27
PROVIDERS: Physician Assistant
DX: K75.81 Nonalcoholic steatohepatitis (NASH) (principal); R18.8 Other ascites; E03.9 Hypothyroidism, unspecified; Z79.899 Other long term (current) drug therapy
CPT/HCPCS: 36415; 80053; 83690; 85025; 99283

== ENCOUNTER 2020-11-23 10:38 | Inpatient (IN) | payer OTHER ==
[~2020-11-23] VITALS: Ht 175.3 cm; Wt 81.3 kg
== END 2020-11-24 17:31 | DRG 441 ==
LOC: ER 10:38 → ICUW 13:52 → MEDS 13:52 → ICUW 15:54 → MEDS 21:02
PROVIDERS: ADMIT Internal Medicine
PROC: 30233N1 Transfusion of Nonautologous Red Blood Cells into Peripheral Vein, Percutaneous Approach (ICD-10-PCS; principal; 2020-11-23)
PROC: 06L38CZ Occlusion of Esophageal Vein with Extraluminal Device, Via Natural or Artificial Opening Endoscopic (ICD-10-PCS; 2020-11-23)
DX: K75.81 Nonalcoholic steatohepatitis (NASH) (principal); I85.11 Secondary esophageal varices with bleeding; R18.8 Other ascites; K76.6 Portal hypertension; D62 Acute posthemorrhagic anemia; Z66 Do not resuscitate; Z51.5 Encounter for palliative care; Z20.822 Contact with and (suspected) exposure to COVID-19; K74.69 Other cirrhosis of liver; E03.9 Hypothyroidism, unspecified; D63.8 Anemia in other chronic diseases classified elsewhere; K31.89 Other diseases of stomach and duodenum; N18.9 Chronic kidney disease, unspecified; K21.9 Gastro-esophageal reflux disease without esophagitis; Z90.710 Acquired absence of both cervix and uterus; Z79.899 Other long term (current) drug therapy
CPT/HCPCS: 0241U; 36415; 36430; 80053; 85025; 85610; 85730; 86850; 86900; 86901; 86923; 93005; 93010; 96365; 96366; 96367; 96375; 96376; 99285-25; A9270; C9113; J0171; J0696; J1430; J2270; J2354; J2405; J2704; J2765; J7030; J7050; J7120; P9016